=== PATIENT | male | born 1990 | race Caucasian/White ===

== ENCOUNTER 2017-01-02 02:17 | Emergency (ER) | payer MEDICAID ==
[2017-01-02 02:42] VITALS: BP 132/112
--- NOTE | 2017-01-02 03:24 | EDM.PDOC ---
ED HPI GENERAL MEDICAL PROBLEM - General Chief Complaint: Upper Extremity Injury/Pain Stated Complaint: POSSIBLE BROKEN RIGHT HAND Time Seen by Provider: 01/02/17 02:45 Source of Information: Reports: Patient History Limitations: Reports: No Limitations - History of Present Illness INITIAL COMMENTS - FREE TEXT/NARRATIVE: 26-year-old male stumbled in his home striking his hand on a couch sustaining an injury. He has a small laceration over the MP joint of the fifth finger, with deformity and pain. He claims he pulled a piece of "bone out of the couch" . He has a previous fracture of the same bone. Onset: Sudden Duration: Hour(s): (Within the last hour) Location: Reports: Upper Extremity, Right Quality: Reports: Sharp, Stabbing Severity: Moderate Right Hand Pain Score (Numeric/FACES): 10 - Related Data Allergies Allergy/AdvReac Type Severity Reaction Status Date / Time Latex, Natural Rubber Allergy Other Verified 01/02/17 02:24 Home Meds: Home Meds NK [No Known Home Meds] 01/02/17 [History] Past Medical History - Past Health History Medical/Surgical History: Denies Medical/Surgical History Musculoskeletal History: Reports: Fracture, Other (See Below) Other Musculoskeletal History: right hand fracture Psychiatric History: Reports: Depression - Infectious Disease History Infectious Disease History: Reports: Chicken Pox - Past Surgical History Musculoskeletal Surgical History: Reports: None Social & Family History - Tobacco Use Smoking Status *Q: Current Every Day Smoker Years of Tobacco use: 8 Packs/Tins Daily: 1.5 - Caffeine Use Caffeine Use: Reports: Soda - Recreational Drug Use Recreational Drug Use: No Review of Systems - Review of Systems Review Of Systems: See Below Constitutional: Denies: Fever Respiratory: Denies: Shortness of Breath Cardiovascular: Denies: Chest Pain GI/Abdominal: Denies: Nausea, Vomiting Psychiatric: Reports: Anxiety ED EXAM, GENERAL - Physical Exam Exam: See Below Exam Limited By: No Limitations General Appearance: Alert, Moderate Distress Respiratory/Chest: No Respiratory Distress Extremities: Other (Exam is otherwise limited to the right hand. He has swelling , some deformity, and a 1 cm laceration over the MP joint dorsally with bleeding. Sensation to the little finger is intact) Course - Vital Signs Last Recorded V/S: Last Vital Signs Temp 97.8 F 01/02/17 02:41 Pulse 89 01/02/17 02:41 Resp 22 H 01/02/17 02:41 BP 132/112 H 01/02/17 02:41 Pulse Ox 99 01/02/17 02:41 - Orders/Labs/Meds Orders: Active Orders 24 hr Category Date Time Status Hand 2V Rt [CR] Stat Exams 01/02/17 02:58 Taken Hand Comp Min 3V Rt [CR] Stat Exams 01/02/17 02:25 Taken Meds: Medications Discontinued Medications Generic Name Dose Route Start Last Admin Trade Name Filomena PRN Reason Stop Dose Admin Lidocaine HCl 5 ml 01/02/17 02:40 01/02/17 02:44 Xylocaine-Mpf 1% INJECT 01/02/17 02:41 5 ml ONETIME ONE Administration - Re-Assessments/Exams Free Text/Narrative Re-Assessment/Exam: 01/02/17 03:21 A right hand x-ray was obtained which showed a displaced fracture of the distal fifth metacarpal. 5 mL of 1% lidocaine was infiltrated into the hematoma, along with a digital block at the base of the fifth metacarpal. Following anesthesia the fracture was reduced and an ulnar gutter hand splint was placed along with a sling. Patient was started on cephalexin 500 3 times a day because of the open nature of the fracture, encouraged to take ibuprofen or naproxen and given 10 hydrocodone for pain control. He should follow-up with orthopedics later this week. Departure - Departure Time of Disposition: 03:33 Disposition: Home, Self-Care 01 Condition: Good Clinical Impression: Fracture of metacarpal bone Qualifiers: Encounter type: initial encounter Metacarpal bone: fifth Fracture type: open Metacarpal location: neck Fracture alignment: displaced Laterality: right Qualified Code(s): S62.336B - Displaced fracture of neck of fifth metacarpal bone, right hand, initial encounter for open fracture - Discharge Information Instructions: Boxer's Fracture, Metacarpal Fracture Referrals: PCP,None [Primary Care Provider] - Forms: ED Department Discharge Care Plan Goals: Keep hand in splint until rechecked. Call Dr. Velasquez's orthopedic clinic tomorrow to discuss an appointment time. Take antibiotic and pain medication as prescribed, along with a regular dose of ibuprofen or naproxen. - My Orders Last 24 Hours: My Active Orders 01/02/17 02:25 Hand Comp Min 3V Rt [CR] Stat 01/02/17 02:58 Hand 2V Rt [CR] Stat - Assessment/Plan Last 24 Hours: My Active Orders 01/02/17 02:25 Hand Comp Min 3V Rt [CR] Stat 01/02/17 02:58 Hand 2V Rt [CR] Stat
--- NOTE | 2017-01-02 09:08 | CR ---
Hand 2V Rt HISTORY: Hand injury postreduction. COMPARISON: Films earlier today. FINDINGS: The comminuted fracture of the distal shaft of the fifth metacarpal demonstrates improved angulation. There is mild displacement. Overlying cast material present.
--- NOTE | 2017-01-02 09:09 | CR ---
Hand Comp Min 3V Rt HISTORY: Trauma COMPARISON: None FINDINGS: Comminuted moderately angulated fracture of the very distal shaft of the right fifth metac arpal. There is apex dorsal lateral angulation with multiple bony fragments at the site of fracture. The adjacent proximal phalanx appears intact.
== END 2017-01-02 03:32 | disposition home or self-care (01) ==
LOC: JP.ED 02:17
DX: S62.336B Displaced fracture of neck of fifth metacarpal bone, right hand, initial encounter for open fracture (principal); F17.210 Nicotine dependence, cigarettes, uncomplicated; F32.9 Major depressive disorder, single episode, unspecified; Z91.040 Latex allergy status; W22.8XXA Striking against or struck by other objects, initial encounter
CPT/HCPCS: 26605; 73120-26-RT; 73120-RT; 73130-26-RT; 73130-RT; 99284-25

== ENCOUNTER 2017-05-13 17:42 | Emergency (ER) | payer MEDICAID ==
[2017-05-13 18:02] VITALS: BP 146/73
[2017-05-13] MEDS ORDERED: Ketorolac 60 MG/2 ML SDV IM ONE (18:17)
--- NOTE | 2017-05-13 18:24 | EDM.PDOC ---
ED HPI GENERAL MEDICAL PROBLEM - General Chief Complaint: General Stated Complaint: PAIN IN SIDE Time Seen by Provider: 05/13/17 18:05 Source of Information: Reports: Patient History Limitations: Reports: No Limitations - History of Present Illness INITIAL COMMENTS - FREE TEXT/NARRATIVE: Mac presents today with complaints of worsening right rib pain. He reports he was recently seen in the clinic for a coughing spell that split his head with pain and caused right sided rib pain to lateral ribs. He states he has tried use of ibuprofen and tylenol for pain without relief. He also states he was given a shot of pain medication and a muscle relaxer from the walk in clinic. He was not able to get the muscle relaxer due to insurance or money issues. He reports 1/2 ppd cigarette use and recent exposure to marijuana. He denies other illicit drugs. Record review: Patient evaluated on 05/10/2017 at [facility] per Fidelina Joe and Dr. Alamo. He was diagnosed with acute non intractable tension type headache most likely related to trapezius muscle spasm. He left clinic before administration of toradol 60mg IM. He was prescribed Soma 350mg TID as needed for muscle spasms. Cataflam 50mg PO TID for three days then as needed for pain. 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 - Related Data Allergies Allergy/AdvReac Type Severity Reaction Status Date / Time Latex, Natural Rubber Allergy Rash Verified 01/04/17 10:54 Home Meds: Home Meds Cetirizine [ZyrTEC] 05/13/17 [History] DULoxetine HCl [Duloxetine HCl] 05/13/17 [History] Diclofenac Potassium [Cataflam] 05/13/17 [History] busPIRone [Buspar] 05/13/17 [History] Past Medical History - Past Health History Medical/Surgical History: Denies Medical/Surgical History Musculoskeletal History: Reports: Fracture, Other (See Below) Other Musculoskeletal History: right hand fracture Psychiatric History: Reports: Depression - Infectious Disease History Infectious Disease History: Reports: Chicken Pox - Past Surgical History Musculoskeletal Surgical History: Reports: None Social & Family History - Tobacco Use Smoking Status *Q: Current Every Day Smoker Years of Tobacco use: 7 Packs/Tins Daily: 0.5 - Caffeine Use Caffeine Use: Reports: Soda - Recreational Drug Use Recreational Drug Use: No ED ROS GENERAL - Review of Systems Review Of Systems: See Below Constitutional: Denies: Fever, Chills, Malaise, Weakness, Fatigue, Night Sweats , Diaphoresis HEENT: Reports: No Symptoms Respiratory: Reports: Pleuritic Chest Pain, Other (Pain to right lateral ribs). Denies: Shortness of Breath, Wheezing, Cough, Sputum, Hemoptysis Cardiovascular: Denies: Chest Pain, Dyspnea on Exertion, Edema, Lightheadedness , Orthopnea, Palpitations, PND, Syncope Endocrine: Reports: No Symptoms GI/Abdominal: Reports: No Symptoms : Reports: No Symptoms Musculoskeletal: Reports: Other (Right rib pain with radiation to back. ) Skin: Denies: Cyanosis, Bruising, Pruritis, Rash, Erythema, Wound, Change in Color, Lesions Neurological: Reports: No Symptoms Psychiatric: Reports: No Symptoms Hematologic/Lymphatic: Reports: No Symptoms Immunologic: Reports: No Symptoms ED EXAM, GENERAL - Physical Exam Exam: See Below Free Text/Narrative:: Mac presents today with complaints of right sided rib pain. Use of tylenol and ibuprofen do not help his pain. He was provided scripts for medication from recent urgent care visit and was unable to fill them due to insurance/money issues. He denies fever, chills, nausea, cough, trauma, or recent injury. Exam Limited By: No Limitations General Appearance: Alert, WD/WN, Mild Distress Eye Exam: Bilateral Eye: EOMI, Normal Inspection, PERRL Ears: Normal External Exam, Normal Canal, Hearing Grossly Normal, Normal TMs Ear Exam: Bilateral Ear: Auricle Normal, Canal Normal, TM normal Nose: Normal Inspection, Normal Mucosa, No Blood Throat/Mouth: Normal Inspection, Normal Lips, Normal Teeth, Normal Gums, Normal Oropharynx, Normal Voice, No Airway Compromise Head: Atraumatic, Normocephalic Neck: Normal Inspection, Supple, Non-Tender, Full Range of Motion. No: Lymphadenopathy (R), Lymphadenopathy (L) Respiratory/Chest: No Respiratory Distress, Lungs Clear, Normal Breath Sounds, No Accessory Muscle Use, Other (Tenderness to right lateral ribcage with palpation and deep breathing) Cardiovascular: Normal Peripheral Pulses, Regular Rate, Rhythm, No Edema, No Gallop, No Murmur, No Rub Peripheral Pulses: 2+: Radial (L), Radial (R), Dorsalis Pedis (L), Dorsalis Pedis (R) GI/Abdominal: Normal Bowel Sounds, Soft, Non-Tender, No Organomegaly, No Distention, No Mass Back Exam: Normal Inspection, Full Range of Motion. No: CVA Tenderness (R), CVA Tenderness (L) Extremities: Normal Inspection, Normal Range of Motion, Non-Tender, No Pedal Edema, Normal Capillary Refill Neurological: Alert, Oriented, CN II-XII Intact, Normal Cognition, Normal Gait, Normal Reflexes, No Motor/Sensory Deficits Psychiatric: Normal Affect, Normal Mood Skin Exam: Warm, Dry, Intact, Normal Color, No Rash. No: Ecchymosis, Erythema, Increased Warmth, Lymphangitis, Mottled, Petechiae, Wound/Incision, Zoster-Like Rash Lymphatic: No Adenopathy Course - Vital Signs Last Recorded V/S: Last Vital Signs Temp 36.6 C 05/13/17 18:00 Pulse 97 05/13/17 18:00 Resp 14 05/13/17 18:00 BP 146/73 H 05/13/17 18:00 Pulse Ox 95 05/13/17 18:00 - Orders/Labs/Meds Orders: Active Orders 24 hr Category Date Time Status Ribs 2V w Chest Rt [CR] Stat Exams 05/13/17 18:17 Taken Labs: Laboratory Tests 05/13/17 05/13/17 05/13/17 Range/Units 18:34 18:34 19:18 WBC 9.2 (4.5-11.0) K/uL RBC 5.16 (4.30-5.90) M/uL Hgb 16.6 H (12.0-15.0) g/dL Hct 46.5 (40.0-54.0) % MCV 90 (80-98) fL MCH 32 H (27-31) pg MCHC 36 (32-36) % Plt Count 334 (150-400) K/uL Neut % (Auto) 63 (36-66) % Lymph % (Auto) 27 (24-44) % [place] % (Auto) 7 H (2-6) % Eos % (Auto) 2 (2-4) % Baso % (Auto) 0 (0-1) % Sodium 140 (140-148) mmol/L Potassium 4.1 (3.6-5.2) mmol/L Chloride 102 (100-108) mmol/L Carbon Dioxide 29 (21-32) mmol/L Anion Gap 9.4 (5.0-14.0) mmol/L BUN 18 (7-18) mg/dL Creatinine 1.1 (0.8-1.3) mg/dL Est Cr Clr Drug Dosing 105.08 mL/min Estimated GFR (MDRD) > 60 (>60) Glucose 76 (74-106) mg/dL Calcium 9.2 (8.5-10.1) mg/dL Urine Color Urine Appearance Urine pH (4.5-8.0) Ur Specific [place] (1.008-1.030) Urine Protein (NEGATIVE) mg/dL Urine Glucose (UA) (NEGATIVE) mg/dL Urine Ketones (NEGATIVE) mg/dL Urine Occult Blood (NEGATIVE) Urine Nitrite (NEGAITVE) Urine Bilirubin (NEGATIVE) Urine Urobilinogen (NORMAL) mg/dL Ur Leukocyte Esterase (NEGATIVE) Urine RBC (0-5) Urine WBC (0-5) Ur Epithelial Cells Amorphous Sediment Urine Bacteria Urine Mucus Urine Opiates Screen Negative (NEGATIVE) Ur Oxycodone Screen Negative (NEGATIVE) Urine Methadone Screen Negative (NEGATIVE) Ur Propoxyphene Screen Negative (NEGATIVE) Ur Barbiturates Screen Negative (NEGATIVE) Ur Tricyclics Screen Negative (NEGATIVE) Ur Phencyclidine Scrn Negative (NEGATIVE) Ur Amphetamine Screen Negative (NEGATIVE) U Methamphetamines Scrn Positive H (NEGATIVE) Urine MDMA Screen Negative (NEGATIVE) U Benzodiazepines Scrn Negative (NEGATIVE) U Cocaine Metab Screen Positive H (NEGATIVE) U Marijuana (THC) Screen Positive H (NEGATIVE) 05/13/17 Range/Units 19:18 WBC (4.5-11.0) K/uL RBC (4.30-5.90) M/uL Hgb (12.0-15.0) g/dL Hct (40.0-54.0) % MCV (80-98) fL MCH (27-31) pg MCHC (32-36) % Plt Count (150-400) K/uL Neut % (Auto) (36-66) % Lymph % (Auto) (24-44) % [place] % (Auto) (2-6) % Eos % (Auto) (2-4) % Baso % (Auto) (0-1) % Sodium (140-148) mmol/L Potassium (3.6-5.2) mmol/L Chloride (100-108) mmol/L Carbon Dioxide (21-32) mmol/L Anion Gap (5.0-14.0) mmol/L BUN (7-18) mg/dL Creatinine (0.8-1.3) mg/dL Est Cr Clr Drug Dosing mL/min Estimated GFR (MDRD) (>60) Glucose (74-106) mg/dL Calcium (8.5-10.1) mg/dL Urine Color Yellow Urine Appearance Clear Urine pH 6.0 (4.5-8.0) Ur Specific [place] 1.015 (1.008-1.030) Urine Protein Negative (NEGATIVE) mg/dL Urine Glucose (UA) Normal (NEGATIVE) mg/dL Urine Ketones Negative (NEGATIVE) mg/dL Urine Occult Blood Negative (NEGATIVE) Urine Nitrite Negative (NEGAITVE) Urine Bilirubin Negative (NEGATIVE) Urine Urobilinogen Normal (NORMAL) mg/dL Ur Leukocyte Esterase Negative (NEGATIVE) Urine RBC 0-5 (0-5) Urine WBC 0-5 (0-5) Ur Epithelial Cells Rare Amorphous Sediment Few Urine Bacteria Not seen Urine Mucus Numerous Urine Opiates Screen (NEGATIVE) Ur Oxycodone Screen (NEGATIVE) Urine Methadone Screen (NEGATIVE) Ur Propoxyphene Screen (NEGATIVE) Ur Barbiturates Screen (NEGATIVE) Ur Tricyclics Screen (NEGATIVE) Ur Phencyclidine Scrn (NEGATIVE) Ur Amphetamine Screen (NEGATIVE) U Methamphetamines Scrn (NEGATIVE) Urine MDMA Screen (NEGATIVE) U Benzodiazepines Scrn (NEGATIVE) U Cocaine Metab Screen (NEGATIVE) U Marijuana (THC) Screen (NEGATIVE) Lab work reviewed. UA positive for methamphetamine, cocaine and marijuana. Patient reports he only used marijuana. Meds: Medications Discontinued Medications Generic Name Dose Route Start Last Admin Trade Name Freq PRN Reason Stop Dose Admin Cyclobenzaprine HCl 10 mg 05/13/17 19:56 05/13/17 19:59 Flexeril PO 05/13/17 19:57 10 mg ONETIME ONE Administration Ketorolac Tromethamine 60 mg 05/13/17 18:17 05/13/17 18:22 Toradol IM 05/13/17 18:18 60 mg ONETIME ONE Administration - Radiology Interpretation Free Text/Narrative:: Chest x-ray with right rib detail wet read, no acute findings or fractures noted. Radiologist read pending. - Re-Assessments/Exams Free Text/Narrative Re-Assessment/Exam: 05/13/17 19:48 Patient lab work and chest x-ray reviewed with him. All his questions answered. Patient advised to abstain from all illicit drugs including marijuana as it can be laced with several other drugs or chemicals. Patient verbalized understanding. Departure - Departure Time of Disposition: 19:54 Disposition: Home, Self-Care 01 Condition: Fair Clinical Impression: Costochondral chest pain, Polysubstance abuse - Discharge Information Instructions: Costochondritis, [id number] Referrals: PCP,None [Primary Care Provider] - Forms: ED Department Discharge Additional Instructions: You have been treated and evaluated in the emergency room for right sided rib pain. You have been provided toradol IM for pain as well as a dose of cyclobenzaprine for pain. Chostochondritis can be painful. It is best to take acetaminophen and ibuprofen for pain as needed. Use of cyclobenzaprine (muscle relaxant) can also help your pain. Keep yourself hydrated with water. Your lab work does not show signs of infection at this time. Please establish care with a primary provider to help you with your right sided rib pain episodes tomorrow - Sunday or Sunday. You can use ice or heat to help with pain as needed along with rest, stretching and yoga. It is best for you to stop use of all illicit drugs, marijuana included to prevent damage to your body, brain and organs. Return for worsening, issues or concerns. - My Orders Last 24 Hours: My Active Orders 05/13/17 18:17 Ribs 2V w Chest Rt [CR] Stat - Assessment/Plan Last 24 Hours: My Active Orders 05/13/17 18:17 Ribs 2V w Chest Rt [CR] Stat Assessment:: Costochondral chest pain, Polysubstance abuse Plan: Patient has been treated and evaluated in the emergency room for right sided rib pain. He was provided toradol IM for pain as well as a dose of cyclobenzaprine for pain with some improvement. Chostochondritis can be painful. It is best for him to take acetaminophen and ibuprofen for pain as needed. Use of cyclobenzaprine (muscle relaxant) can also help pain. Keep hydrated with water. His lab work does not show signs of infection or blood in the urine at this time. He needs to establish care with a primary provider to help with right sided rib pain episodes tomorrow - Sunday or Sunday. He can use ice or heat to help with pain as needed along with rest, stretching and yoga. It is best for him to stop use of all illicit drugs, marijuana included to prevent damage to the body, brain and organs. Return for worsening, issues or concerns.
[2017-05-13] MEDS ORDERED: Cyclobenzaprine 10 MG Tab PO ONE (19:56)
--- NOTE | 2017-05-14 08:26 | CR ---
Ribs 2V w Chest Rt INDICATION: right sided rib pain FINDINGS: Comparison 12/12/2015. No change. Negative chest and dedicated right rib views.
== END 2017-05-13 20:11 | disposition home or self-care (01) ==
LOC: JP.ED 17:42
DX: R07.1 Chest pain on breathing (principal); F19.10 Other psychoactive substance abuse, uncomplicated; F32.9 Major depressive disorder, single episode, unspecified; F17.210 Nicotine dependence, cigarettes, uncomplicated; Z79.899 Other long term (current) drug therapy; Z91.040 Latex allergy status
CPT/HCPCS: 36415; 71101; 80048; 80305; 81001; 85025; 96372; 99284; A9270; J1885